=== PATIENT | female | born 1965 | race Caucasian/White ===

== ENCOUNTER 2019-08-23 15:29 | Emergency (ER) | payer BC, SELFPAY ==
[2019-08-23 15:39] VITALS: BP 155/80; PULSE 95; RESP 16; TEMP 36.8; O2SAT 96
[2019-08-23 16:16] VITALS: RESP 16
--- NOTE | 2019-08-23 16:18 | ED.GENADUL_ITS ---
Discharge Plan Disposition Patient Disposition: HOME Condition: Good Discharge Details Chief Complaint: Vascular Clinical Impression: Arthritis of knee, Leg pain Primary Care Provider: Selena Ratliff ED Provider: Ghazal Alvarenga Home Meds and New Rx's Prescriptions: No Action levothyroxine 88 MCG tablet 88 mcg PO DAILY RF: 0 simvastatin 20 MG tablet 20 mg PO HS RF: 0 metformin [Glucophage] 1,000 MG tablet 1,000 mg PO BID RF: 0 ranitidine HCl [Zantac] 150 MG tablet 150 mg PO BID RF: 0 Lantus U-100 Insulin 100 unit/mL Solution 22 unit SUBCUT HS RF: 0 acetaminophen 500 mg Tablet 1,000 mg PO PRN PRNRF: 0 Victoza 2-Mal 0.6 mg/0.1 mL (18 mg/3 mL) Pen Injector 0.18 mg SUBCUT RF: 0 Discharge Instructions Instructions: Leg Pain (ED) Additional Instructions: Ice to the knee for swelling. Keep leg elevated. Wilmer wrap for comfort. You do not need to sleep in your Wilmer wrap. Use Eliquis as discussed for the next 2 days until you are able to have ultrasound evaluation on Sunday. This medication can make you bleed easily use caution in the next few days if you have any falls or trauma you need immediate reevaluation Use Tylenol 1000 mg every 6-8 hours for pain if needed Rest activities as tolerated. Plan on following up with local orthopedic doctor as discussed for reevaluation of your knee pain. Return sooner for any alarming symptoms, worsening or concerns if needed Referrals: Meño Ring MD [ [facility] STAFF PHYSICIAN] - Medical Decision Making Is a 54-year-old woman who presents for complaints of right leg pain specifically at the knee with some extension toward the calf. Patient concerned with persistent pain despite using Tylenol, resting limiting activities for the last 2 days. Patient denies any obvious inciting event although she does have history of meniscus repair on this knee several years ago after an injury. Patient is also concerned possibility of DVT. Denies any symptoms of difficulty breathing or shortness of breath or dizziness. Denies any weakness. Patient does have some DVT risk factors specifically she is a smoker, has traveled recently driving to [place] and back although did take frequent breaks to get out of the car, does have family history of DVT. On exam patient has medial joint line tenderness, posterior swelling consistent with Wallis's cyst and mild calf pain with palpation. Limited range of motion with flexion due to pain, position of comfort is extended. Mild swelling of the right leg compared to the left. Distal neurovascularly intact. Pulses intact distally. X-ray ordered of the right knee as well as ultrasound. Waiting to hear if surgical technology instructor is available this evening. X-ray of the right knee reveals tricompartmental degenerative changes of the right knee and prepatellar soft tissue edema. Likely this is the source of patient's pain. However given patient's complaints of calf pain and swelling differential diagnosis does include the possibility of DVT. Patient's preference at this time is anticoagulation until able to have ultrasound on Sunday. Ultrasound is in outpatient was scheduled for Sunday to be followed up in the emergency room. Discussed use of Eliquis. Patient has no history of head bleeding, GI bleeding and has tolerated anticoagulation with Lovenox in the past. Patient is aware of the risk of bleeding with anticoagulation medications. Did discuss the avoidance of NSAIDs or aspirin while taking anticoagulation medications. Patient reports her understanding and this remains her preference. Josesito encouraged for knee pain and follow-up with local orthopedic doctor. Patient has had surgery with Dr. Ring in the past and prefers to follow-up with him for her complaints of knee pain and arthritis. The patient was stable and requested discharge. Prior to discharge, my usual and customary return precautions were reviewed with the patient - this included follow-up instructions and reasons to return to the Emergency Department if conditions worsens, does not improve as expected, or other new concerns arise. HPI General Date/Time Provider Initiated Documentation: 08/23/19 16:16 . HPI Narrative: This is a 54-year-old patient who presents for complaints of right leg pain. Patient ports onset of right leg pain 2 days ago. Patient denies any specific injury or trauma. Patient does report this was a site of previous injury she has had a history of meniscus injury with repair of the right knee several years ago. Patient reports right leg pain which gradually developed 2 days ago. Denies any obvious inciting event. Patient does report mild pain into the calf. Patient primarily concerned with persistence of pain despite use of ice, rest and Tylenol. Patient also concerned the possibility of DVT. Patient denies any difficulty beating shortness of breath or wheezing. Denies any significant dizziness. Patient reports normal energy. Patient is a smoker, BMI of 33, recently 2 weeks ago drove to and from [place], does have a family history of DVT specifically mother and sister. Patient does report right leg feels swollen. Related Data Home Medications Medication Instructions Recorded Confirmed levothyroxine 88 mcg PO DAILY 02/29/16 08/23/19 metformin [Glucophage] 1,000 mg PO BID 02/29/16 08/23/19 ranitidine HCl [Zantac] 150 mg PO BID 02/29/16 08/23/19 simvastatin 20 mg PO HS 02/29/16 08/23/19 acetaminophen 1,000 mg PO PRN PRN 08/23/19 08/23/19 insulin glargine [Lantus U-100 22 unit SUBCUT HS 08/23/19 08/23/19 Insulin] liraglutide [Victoza 2-Mal] 0.18 mg SUBCUT 08/23/19 Allergies Allergy/AdvReac Type Severity Reaction Status Date / Time Sulfa (Sulfonamide Allergy Severe Anaphylaxsi Unverified 03/02/16 03:32 Antibiotics) s codeine Allergy Intermediate Hives Unverified 03/02/16 03:32 lisinopril Allergy Anaphylaxsi Unverified 08/23/19 15:43 s Opioids - Morphine Analogues AdvReac Mild Nausea Unverified 03/02/16 03:32 General Stated Complaint: Vascular TEENA: 3 Review of Systems All systems reviewed & are unremarkable except as noted in HPI and below Constitutional Constitutional: Denies chills, Denies fatigue, Denies fever(s) and Reports headache(s) ENT Ears, Nose, Mouth, and Throat: Reports headache(s) Musculoskeletal Musculoskeletal: Reports abnormal gait (Limping), Reports joint swelling, Reports limited range of motion, Denies muscle cramps, Denies muscle weakness, Denies numbness, Denies radiating pain into limb and Denies tingling Integumentary/Breasts Skin/Breast: Denies erythema, Denies rash and Denies wounds Neurologic Neurologic: Reports abnormal gait (Limping), Reports headache(s), Denies numbness and Denies tingling Endocrine Endocrine: Denies fatigue PFSH Social History Smoking/Tobacco Use Status: Current every day Alcohol Intake: former Drug use: Occasionally Do you feel safe at home: Yes Do you feel safe in your relationship?: Yes Exam Narrative Exam Narrative: CONST: Healthy appearing patient, in no acute distress. Well hydrated. Alert and alert. MUSCULOSKELETAL: No hip pain with palpation of a femur pain with palpation. Patient reports medial joint line tenderness with palpation. Mild swelling of the right knee with posterior swelling present. No erythema or warmth of the joint. Patient does have limited flexion due to pain. No significant díaz pain with palpation. Mild calf pain with palpation distally. No significant ankle pain with palpation. Sensation intact distally. Pulses intact distally. No significant pain with flexion extension of the ankle. SKIN: Normal. Dry. No rashes. NEURO: Alert and awake. Speech clear. PSYCH: Normal affect. Cooperative. Course Vital Signs Vital signs: Vital Signs Temperature 36.8 C 08/23/19 15:39 Pulse 95 H 08/23/19 15:39 Respiratory Rate 16 08/23/19 15:39 Blood Pressure 155/80 H 08/23/19 15:39 Pulse Oximetry 96 08/23/19 15:39 Temperature 36.8 C 08/23/19 15:39 Temperature Source Temporal Artery Scan 08/23/19 15:39 Pulse 95 H 08/23/19 15:39 Respiratory Rate 16 08/23/19 16:16 Respiratory Effort 08/23/19 16:16 Respiratory Depth Normal 08/23/19 16:16 Respiratory Pattern Normal 08/23/19 16:16 Blood Pressure 155/80 H 08/23/19 15:39 Blood Pressure Position Sitting 08/23/19 15:39 Pulse Oximetry 96 08/23/19 15:39 Oxygen Delivery Method Room Air 08/23/19 15:39 Oxygen Flow Rate 0 08/23/19 15:39 Pain Level 8 08/23/19 15:39
--- NOTE | 2019-08-23 16:32 | DI.RAD_ITS ---
EXAM: XR KNEE RT 3V AP,LAT,ALICIA INDICATION: pain. COMPARISON: No exams were available for comparison TECHNIQUE: 2D digital imaging was performed. FINDINGS: No acute fracture or dislocation is present. Moderate degenerative changes are seen throughout the k nee. No destructive or erosive changes are seen to suggest osteomyelitis. There is a well corticate d osseous density seen medial to the medial femoral condyle. There is soft tissue swelling anteriorl y. IMPRESSION: Degenerative changes of the right knee. Soft tissue swelling anteriorly.
--- NOTE | 2019-08-23 17:06 | DI.VRAD_ITS ---
PROCEDURE INFORMATION: Exam: XR Right Knee Exam date and time: 08/23/2019 4:43 PM Age: 54 years old Clinical indication: Other: Pain TECHNIQUE: Imaging protocol: XR Right knee. Views: 3 views. COMPARISON: No relevant prior studies available. FINDINGS: Bones/joints: Narrowing of the medial femoral tibial joint. Degenerative changes of the medial and lateral femoral tibial joint. Degenerative changes of the patellofemoral joint. No joint effusion. Soft tissues: Soft tissue calcification medial aspect of the distal femur. Mild pre patella soft tissue swelling. IMPRESSION: Tricompartmental degenerative changes right knee. Prepatellar soft tissue edema. Dictated and Authenticated by: Yoli Hale MD. Ordering:SONNY Harman MD
[2019-08-23] MEDS: Apixaban 5 MG TAB (18:45)
== END 2019-08-23 19:00 | disposition home or self-care (01) ==
PROVIDERS: Emergency Provider Physician Assistant; PCP Internal Medicine
DX: M79.604 Pain in right leg (principal); M17.11 Unilateral primary osteoarthritis, right knee; Z82.49 Family history of ischemic heart disease and other diseases of the circulatory system; F17.210 Nicotine dependence, cigarettes, uncomplicated
CPT/HCPCS: 73562; 99284; 99283

== ENCOUNTER 2019-08-25 09:01 | Emergency (ER) | payer BC, SELFPAY ==
[2019-08-25 09:06] VITALS: BP 164/74; PULSE 105; RESP 18; TEMP 36.3; O2SAT 96
--- NOTE | 2019-08-25 09:12 | W.ED.GENAD ---
Discharge Plan Disposition Patient Disposition: HOME Condition: Stable Discharge Details Chief Complaint: Orthopedic Clinical Impression: Cellulitis Primary Care Provider: Selena Ratliff ED Provider: Ena Olvera Home Meds and New Rx's Prescriptions: New doxycycline hyclate 100 mg tablet 100 mg PO BID Qty: 19 RF: 0 ondansetron 4 mg tablet,disintegrating 4 mg PO Q8H PRN (Reason: nausea and vomiting) Qty: 8 RF: 0 oxycodone-acetaminophen [Percocet] 5-325 mg tablet 1 tab PO DAILY PRN PRN (Reason: pain) Qty: 6 RF: 0 Continued levothyroxine 88 MCG tablet 88 mcg PO DAILY RF: 0 simvastatin 20 MG tablet 20 mg PO HS RF: 0 metformin [Glucophage] 1,000 MG tablet 1,000 mg PO BID RF: 0 ranitidine HCl [Zantac] 150 MG tablet 150 mg PO BID RF: 0 Lantus U-100 Insulin 100 unit/mL Solution 22 unit SUBCUT HS RF: 0 acetaminophen 500 mg Tablet 1,000 mg PO PRN PRNRF: 0 Victoza 2-Mal 0.6 mg/0.1 mL (18 mg/3 mL) Pen Injector 0.18 mg SUBCUT RF: 0 Discharge Instructions Instructions: Doxycycline (By mouth), Oxycodone/Acetaminophen (By mouth), Ondansetron (By mouth), Cellulitis (ED) Additional Instructions: Please return immediately to the emergency department if you develop any new or worsening symptoms, if your condition does not improve as expected, or if you become otherwise concerned. It is extremely important that you call soon as possible to make an appointment to be seen in follow-up for this visit by your primary care doctor and/or orthopedics as we discussed. Stand Alone Forms: Work Release Referrals: Vipul Siddiqi MD [ [facility] STAFF PHYSICIAN] - Selena Ratliff [Primary Care Provider] - Medical Decision Making Sherice Boland is a 54-year-old woman with a history of insulin-dependent diabetes, hyperlipidemia, hypothyroidism, obstructive sleep apnea who presented to the emergency department with several days of knee pain, now with new rash to the knees since last night and vomiting last night. On exam patient is well and nontoxic-appearing, but does appear uncomfortable. Benign cardiopulmonary exam. Right lower extremity is neurovascular intact with no posterior calf tenderness palpation. 10 cm patchy erythema to the right medial knee with exquisite tenderness palpation in this area, patient with passive flexion to approximately 30 degrees. Concern for septic arthritis, DVT, cellulitis. X-ray performed 08/23/2019. Plan for screening labs, ultrasound, IV, IV morphine for pain control, IV Zofran. Labs reviewed, significant for leukocytosis, elevated CRP. Patient refusing arthrocentesis. I discussed patient presentation labs with Dr. Siddiqi, who will see patient at bedside. Patient consented to arthrocentesis, which was performed by Dr. Siddiqi, please see his procedure note. Arthrocentesis yielded no fluid. Per Dr. Siddiqi treat for cellulitis at this time with p.o. antibiotics, close outpatient f/u. Patient reports nausea with Keflex, Bactrim allergy. Plan to treat with doxycycline. Patient reports that she has slept minimally in the past few days secondary to knee pain. She reports that she has taken Percocet in the past (last time taking Percocet was given a year ago). Plan for 5 mg Percocet 1 to 2 hours before bedtime PRN for pain. Rx for doxycycline, Zofran as patient reports frequent stomach upset with medication. Patient to call Dr. Siddiqi's office in 2 to 3 days to schedule outpatient follow-up symptoms not resolved, return to the emergency department immediately for any new or worsening symptoms or return to the emergency department in 24 to 48 hours if no improvement in symptoms. I had a lengthy discussion with Patient regarding return to emergency department precautions, safe Percocet use (including to take only as prescribed, not taking combination with alcohol, Benadryl, or any other sedating medications/drugs, do not drive, make poor decisions, or operate machinery within 6 hours of taking Percocet), home care, and importance of outpatient follow-up. Pt verbalizes understanding of the plan and is amenable. Patient discharged to home with clear plan for outpatient follow-up. All questions were answered. Disposition decision was made weighing the risks and benefits of hospitalization versus outpatient treatment, the risk for further decompensation, and the patient's wishes. Medical Records Medical records reviewed: Yes I reviewed the patient's medical records. Lab Data Lab results reviewed: Yes I reviewed the patient's lab results. Labs: 08/25/19 12:35 Blood Blood Culture - Pending 08/25/19 11:52 Synovial - Right Knee Body Fluid Culture - Pending 08/25/19 11:52 Synovial - Right Knee Gram Stain - Pending 08/25/19 10:25 Blood Blood Culture - Pending Laboratory Tests Range/Units 08/25/19 08/25/19 08/25/19 10:25 10:25 10:25 WBC (4.4-10.8) k/cumm 11.28 H RBC (4.00-5.20) m/cumm 4.63 Hgb (12.0-15.5) g/dL 13.9 Hct (36.0-46.0) % 41.2 MCV (80-95) fL 89.0 MCH (27.0-33.0) pg 30.0 MCHC (32.0-36.0) g/dL 33.7 RDW (11.7-14.6) % 14.0 Plt Count (130-400) x1000/uL 150 MPV (8.0-11.0) fL 10.2 Immature Gran % 0.3 Neutrophils % 59.5 Lymphocytes % 24.5 Monocytes % 12.3 Eosinophils % 3.1 Basophils % 0.3 Absolute Neutrophils (1.2-6.7) k/cumm 6.71 H Absolute Lymphocytes (1.2-3.4) k/cumm 2.76 Absolute Monocytes (0.11-0.7) k/cumm 1.39 H Absolute Eosinophils (0.0-0.7) k/cumm 0.35 Absolute Basophils (0.0-0.2) k/cumm 0.03 ESR (0-30) mm/hr 26 Sodium (136-145) mmol/L 139 Potassium (3.5-5.1) mmol/L 3.7 Chloride (98-107) mmol/L 100 Carbon Dioxide (21.0-32.0) mmol/L 29.9 Anion Gap (3-11) mmol/L 9.1 BUN (7-18) mg/dL 10 Creatinine (0.55-1.02) mg/dL 0.58 Estimated GFR/1.73 m2 (mL/min/1.73m2) >= 60.00 Glucose (74-106) mg/dL 201 H Hemoglobin A1c (3.8-5.6) % 8.0 H Calcium (8.5-10.1) mg/dL 8.8 Total Bilirubin (0.2-1.0) mg/dL 0.6 AST (15-37) U/L 18 ALT (14-59) U/L 24 Alkaline Phosphatase (46-116) U/L 60 C-Reactive Protein (0.0-0.3) mg/dL 5.87 H Total Protein (6.4-8.2) g/dL 8.3 H Albumin (3.4-5.0) g/dL 3.4 HPI General Mode of arrival: ambulatory. Date/Time Provider Initiated Documentation: 08/25/19 09:12. Limitations to Documentation: no limitations. Information obtained by: patient, RN notes reviewed and old records reviewed. HPI Narrative: Yoli Boland is a 54-year-old woman with a history of insulin-dependent diabetes, hypothyroidism, hyperlipidemia, obstructive sleep apnea presenting to the emergency department with knee pain. 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 Patient reports that she woke up in the morning with right-sided knee pain without known trauma, skin wound, or other inciting event. Patient was seen here 08/23 for knee pain, had x-ray which showed arthritis without acute process, was started on Eliquis and sent home to have ultrasound performed here today. Patient reports that pain has been getting worse since ED visit. She reports that last night she noticed rash to the medial aspect of the right knee that is new. Patient reports that she also had several episodes of vomiting last night which is very atypical for her. She denies fevers, any other pain, any other rash, cough, shortness of breath, diarrhea, numbness, weakness. Patient states that she has never had similar symptoms in the past. Patient reports that she had a meniscal repair of the right knee 13 to 14 years ago. Related Data Home Medications Medication Instructions Recorded Confirmed levothyroxine 88 mcg PO DAILY 02/29/16 08/25/19 metformin [Glucophage] 1,000 mg PO BID 02/29/16 08/25/19 ranitidine HCl [Zantac] 150 mg PO BID 02/29/16 08/25/19 simvastatin 20 mg PO HS 02/29/16 08/25/19 Lantus U-100 Insulin 22 unit SUBCUT HS 08/23/19 08/25/19 Victoza 2-Mal 0.18 mg SUBCUT 08/23/19 acetaminophen 1,000 mg PO PRN PRN 08/23/19 08/25/19 doxycycline hyclate 100 mg PO BID #19 tab 08/25/19 ondansetron 4 mg PO Q8H PRN #8 tab 08/25/19 oxycodone-acetaminophen [Percocet] 1 tab PO DAILY PRN PRN #6 tab 08/25/19 Previous Rx's Medication Instructions Recorded doxycycline hyclate 100 mg PO BID #19 tab 08/25/19 ondansetron 4 mg PO Q8H PRN #8 tab 08/25/19 oxycodone-acetaminophen [Percocet] 1 tab PO DAILY PRN PRN #6 tab 08/25/19 Allergies Allergy/AdvReac Type Severity Reaction Status Date / Time Sulfa (Sulfonamide Allergy Severe Anaphylaxsi Unverified 08/25/19 09:18 Antibiotics) s codeine Allergy Intermediate Hives Unverified 08/25/19 09:18 lisinopril Allergy Anaphylaxsi Unverified 08/25/19 09:18 s Opioids - Morphine Analogues AdvReac Mild Nausea Unverified 08/25/19 09:18 General Stated Complaint: Orthopedic TEENA: 3 Review of Systems Narrative: Constitutional: denies fevers Eyes: denies eye pain ENT: denies ear pain, dental pain, sore throat Cardiovascular: denies chest pain Respiratory: denies SOB, cough GI: denies abdominal pain, diarrhea, reports vomiting : denies flank pain MSK: denies back pain, neck pain, myalgias, reports right knee pain, denies other joint pain Skin: Reports red rash to right knee Neuro: denies headaches, numbness, weakness PFSH Social History Smoking/Tobacco Use Status: Current every day Alcohol Intake: former Drug use: Occasionally Do you feel safe at home: Yes Do you feel safe in your relationship?: Yes Exam Narrative Exam Narrative: Constitutional: well and [id number], pleasant, conversing normally HENT: head atraumatic/normocephalic/normal inspection, mucous membranes moist Eyes: conjunctiva normal, sclera normal, pupils 3mm b/l Neck: no stridor, normal ROM, trachea midline Resp: normal work of breathing, LCTAB Cardio: normal rate, normal rhythm, no murmur appreciated Skin: warm, dry, normal color Neuro: alert, not altered, grossly non-focal, normal tone Ext: Right knee with small to moderate effusion, 10 cm patchy erythema to the anteromedial aspect of the right knee, area of erythema exquisitely tender to palpation without crepitus, popliteal and lateral aspects of knee nontender to palpation, significant pain with any ranging of the knee, patient able to flex the knee passively approximately 30 degrees, is not able to fully extend secondary to pain DP and PT pulses intact, no other rash to the right lower extremity, no posterior calf tenderness to palpation Psych: normal mood, normal affect, normal behavior Course Vital Signs Vital signs: Vital Signs Temperature 36.3 C L 08/25/19 09:06 Pulse 105 H 08/25/19 09:06 Respiratory Rate 18 08/25/19 09:06 Blood Pressure 164/74 H 08/25/19 09:06 Pulse Oximetry 96 08/25/19 09:06 Temperature 36.3 C L 08/25/19 09:06 Temperature Source Temporal Artery Scan 08/25/19 09:06 Pulse 105 H 08/25/19 09:06 Respiratory Rate 18 08/25/19 09:06 Respiratory Effort Non-Labored 08/25/19 09:07 Blood Pressure 164/74 H 08/25/19 09:06 Blood Pressure Position Sitting 08/25/19 09:06 Pulse Oximetry 96 08/25/19 09:06 Oxygen Delivery Method Tent 08/25/19 09:06 Oxygen Flow Rate 0 08/25/19 09:06 Pain Level 8 08/25/19 09:06
[2019-08-25 10:19] VITALS: BP 131/61; PULSE 88; TEMP 36.7; O2SAT 96
--- NOTE | 2019-08-25 10:28 | DI.US_ITS ---
EXAM: US LOWER EXTREMITY VENOUS RT CLINICAL HISTORY: right leg pain TECHNIQUE: Right lower extremity venous ultrasound performed using grayscale, color-flow, and spectr al Doppler analysis. COMPARISON: No exams were available for comparison FINDINGS: The right common femoral, femoral and popliteal veins demonstrate normal compressibility, augmentatio n, and color Doppler. The posterior tibial veins are patent.The saphenofemoral junction is unremarkab le. No evidence of a popliteal cyst is seen. There is edema seen in the soft tissues around the kne e. IMPRESSION: No DVT.
[2019-08-25] MEDS: Normal Saline Flush 10 ML SYR IVP ×2 (10:32→12:54)
[2019-08-25 10:37] LABS: Abs Immature Grans 0.03 k/cumm (0.0-0.09); Absolute Basophil Count 0.03 k/cumm (0.0-0.2); Absolute Eosinophil Count 0.35 k/cumm (0.0-0.7); Absolute Lymphocyte Count 2.76 k/cumm (1.2-3.4); Absolute Monocyte Count 1.39 k/cumm (0.11-0.7); Basophils % 0.3; Eosinophils % 3.1; HCT 41.2 % (36.0-46.0); HGB 13.9 g/dL (12.0-15.5); Immature Grans % 0.3; Lymphocytes % 24.5; Mean Corp. HGB Concentration 33.7 g/dL (32.0-36.0); Mean Platelet Volume 10.2 fL (8.0-11.0); Monocytes % 12.3; Neutrophils % 59.5; Platelet Count 150 x1000/uL (130-400); RBC 4.63 m/cumm (4.00-5.20); White Blood Cell Count 11.28 k/cumm (4.4-10.8)
[2019-08-25 10:41] LABS: Absolute Neutrophil Count 6.71 k/cumm (1.2-6.7)
[2019-08-25 10:52] LABS: ALT 24 U/L (14-59); AST 18 U/L (15-37); Albumin 3.4 g/dL (3.4-5.0); Alkaline Phosphatase 60 U/L (46-116); Anion Gap 9.1 mmol/L (3-11); BUN 10 mg/dL (7-18); Bilirubin, Total 0.6 mg/dL (0.2-1.0); C-Reactive Protein 5.87 mg/dL (0.0-0.3); CO2 29.9 mmol/L (21.0-32.0); CREATININE 0.58 mg/dL (0.55-1.02); Calcium 8.8 mg/dL (8.5-10.1); Chloride 100 mmol/L (98-107); Glucose 201 mg/dL (74-106); Potassium 3.7 mmol/L (3.5-5.1); Sodium 139 mmol/L (136-145); Total Protein 8.3 g/dL (6.4-8.2)
[2019-08-25] MEDS: Ondansetron 4 MG/2 ML VIAL IVP (11:02)
[2019-08-25 11:16] LABS: ESR 26 mm/hr (0-30)
[2019-08-25] MEDS: LORazepam 2 MG/ML VIAL 1 MG IVP (11:48)
--- NOTE | 2019-08-25 11:52 | W.ORTHOCONSU ---
Date of service: 08/25/19 Time of Service: 11:52 History of Present Illness History of Present Illness Chief Complaint: Right Knee Pain Narrative: Yoli is a 54yo female who presents with acute right knee pain. This started about 5 days ago without known trauma or injury. She worked her usual shift but then developed medial sided knee pain. She presented to the ED 2 days ago, and was concerned for a DVT. She was started on Eliquis. She has had no improvement and continued to have right knee pain with worsening function. She is no longer able to move the knee without exquisite pain, mostly medial. She is able to ambulate only with assistance and is unable to bear weight fully without exquisite pain. She has had some swelling about the knee. She reports redness to the medial aspect. She denies any fever or chills but she has had nausea and vomiting. She has a history of gout, but never in the knees. She also reports a vague history of a possible right hip infection. It is unclear about this diagnosis but she never had IV antibiotics and she didn't have any surgery, although she may have had an intraarticular aspiration per her report. Consult Reason Right Knee Pain Assessment and Plan Assessment and plan (1) Cellulitis of right knee: Status: Acute Assessment and plan: Yoli is a 54-year-old diabetic who has an apparent cellulitis of the right knee. I was concerned about septic arthritis given her medical history and the fluid around the knee. However, the aspirate was negative. Therefore, at this point, I would treat the cellulitis conservatively. She has multiple allergies to antibiotics and therefore we will try doxycycline at this point. I would like to get this least 48 hours to make sure it is improving. If she is not seeing signs improvement we may need to return for a visit and a repeat C-reactive protein. I would give the antibiotics 48 hours and she is to call the office to touch base on how she is doing. Review of Systems All systems reviewed & are unremarkable except as noted in HPI and below PFSH Social History Smoking/Tobacco Use Status: Current every day Alcohol Intake: former Drug use: Occasionally Do you feel safe at home: Yes Do you feel safe in your relationship?: Yes Exam Narrative Exam Narrative: Laying supine in the hospital stretcher. The right knee is slightly flexed with some slight flexion of the hip. There is some erythema seen over the medial aspect the knee. It is not centered around the knee. There is no notable warmth. There is no obvious break in the skin, abrasion or bite disha. There is no streaking of erythema. There is some fullness to the knee. Is difficult to appreciate this is within the joint or around the knee. It is focused anterior medially. There is also some mild fluid seen anterior laterally. There is exquisite pain to palpation throughout the knee, significantly worsened over the medial aspect the knee where the associated erythema is seen. No fluctuance. She guards to the entirety of the examination. She is only able to demonstrate active range of motion from 30 to 45 degrees. Passively I may be able to move her knee 20 to 50 degrees, but it is associate with significant pain. No crepitus. Results Last Vital Signs Temp 36.7 C 08/25/19 10:19 Pulse 88 08/25/19 10:19 Resp 18 08/25/19 09:06 BP 131/61 08/25/19 10:19 Pulse Ox 96 08/25/19 10:19 Labs Result diagrams: 08/25/19 10:25 08/25/19 10:25 Labs: Laboratory Results - last 24 hr 08/25/19 08/25/19 08/25/19 10:25 10:25 10:25 WBC 11.28 H RBC 4.63 Hgb 13.9 Hct 41.2 MCV 89.0 MCH 30.0 MCHC 33.7 RDW 14.0 Plt Count 150 MPV 10.2 Immature Gran % 0.3 Neutrophils % 59.5 Lymphocytes % 24.5 Monocytes % 12.3 Eosinophils % 3.1 Basophils % 0.3 Absolute Neutrophils 6.71 H Absolute Lymphocytes 2.76 Absolute Monocytes 1.39 H Absolute Eosinophils 0.35 Absolute Basophils 0.03 ESR 26 Sodium 139 Potassium 3.7 Chloride 100 Carbon Dioxide 29.9 Anion Gap 9.1 BUN 10 Creatinine 0.58 Estimated GFR/1.73 m2 >= 60.00 Glucose 201 H Hemoglobin A1c 8.0 H Calcium 8.8 Total Bilirubin 0.6 AST 18 ALT 24 Alkaline Phosphatase 60 C-Reactive Protein 5.87 H Total Protein 8.3 H Albumin 3.4 Imaging Imaging Studies: X-ray of the right knee from previous ED visit demonstrates a tricompartmental arthritis, moderate throughout the knee. There is a bony ossicle seen over the medial aspect of the femur. Procedures Joint Aspiration/Injection Joint Asp./Inject. 1: Time out performed: Yes Side of body: right Joint aspirated: knee Ultrasound guidance: No Skin prep: Chlorhexidine Local anesthesia used: other (Ethyl Chloride) Needle size used: 18G Total fluid obtained (ml): 0 Patient tolerated procedure: well Complications: none
[2019-08-25] MEDS: Doxycycline Hyclate 100 MG CAP PO (12:53)
[2019-08-25 13:13] VITALS: BP 128/62; PULSE 91; RESP 16; TEMP 36.5; O2SAT 94
[2019-08-25 13:18] VITALS: BP 128/62; PULSE 91; RESP 16; TEMP 36.5; O2SAT 94
== END 2019-08-25 13:15 | disposition home or self-care (01) ==
PROVIDERS: Emergency Provider Student in an Organized Health Care Education/Training Program; PCP Internal Medicine
DX: L03.115 Cellulitis of right lower limb (principal); R21 Rash and other nonspecific skin eruption; R11.2 Nausea with vomiting, unspecified; E11.9 Type 2 diabetes mellitus without complications; Z79.4 Long term (current) use of insulin
CPT/HCPCS: 20610; 36410; 36415; 80053; 85652; 87040; 96374; 96375; 99253; 99284; 83036; 85025; 86140; 87070; 87205; 89051; 89060; 93971; J2060; J2405

== ENCOUNTER 2023-11-16 22:02 | Outpatient (REF) | payer MEDICAID, SELFPAY ==
[2023-11-16 23:03] LABS: C Diff PCR Negative (Negative)
== END 2023-11-16 22:03 | disposition home or self-care (01) ==
LOC: LBN 22:02
PROVIDERS: PCP Internal Medicine; Visit Provider Pediatrics
DX: A04.72 Enterocolitis due to Clostridium difficile, not specified as recurrent (principal)
CPT/HCPCS: 87493